=== PATIENT | female | born 1950 | race Caucasian/White ===

== ENCOUNTER 2017-05-06 10:27 | Emergency (ER) | payer MEDICARE, BC ==
[~2017-05-06] VITALS: Ht 162.6 cm; Wt 105.7 kg
[2017-05-06 10:31] VITALS: BP 160/91
[2017-05-06] MEDS ORDERED: ROSU10TA PO (10:47)
[2017-05-06] MEDS ORDERED: HYDR12.58 PO (10:47)
[2017-05-06] MEDS ORDERED: ATEN100T PO (10:47)
== END 2017-05-06 11:46 | disposition home or self-care (01) ==
LOC: ED 11:40
DX: S43.421A Sprain of right rotator cuff capsule, initial encounter (principal); I10 Essential (primary) hypertension; E78.5 Hyperlipidemia, unspecified; Z88.6 Allergy status to analgesic agent; W01.0XXA Fall on same level from slipping, tripping and stumbling without subsequent striking against object, initial encounter; Y93.01 Activity, walking, marching and hiking; Y99.8 Other external cause status; Y92.410 Unspecified street and highway as the place of occurrence of the external cause